=== PATIENT | female | born 1995 | race Two or more races ===

== ENCOUNTER → 2024-05-19 | Outpatient (CLI) | payer MEDICAID, SELFPAY ==
--- NOTE | 2024-05-19 15:30 | XR_ITS ---
Examination: Pelvic ultrasound, transabdominal, complete Technique: Transabdominal ultrasound of the pelvis performed using grayscale imaging Date and time of exam: May 19, 2024 1528 hours INDICATIONS: Partially cystic partially solid right adnexal mass 5.[address] pelvis June 21, 2023 FINDINGS: Uterus 9.1 x 4.2 x 5.0 cm No uterine mass or intrauterine gestation Endometrial stripe 1.2 cm Right ovary 3.5 x 2.4 x 2.5 cm arterial flow Left ovary 3.8 x 2.2 x 3.0 cm arterial flow, 2.8 x 1.5 x 2.6 cm cyst IMPRESSION: Left ovarian 2.8 x 1.5 x 2.6 cm cyst
== END | disposition home or self-care (01) ==
PROVIDERS: Referring Provider Nurse Practitioner Family; Visit Provider Nurse Practitioner Family
DX: N83.202 Unspecified ovarian cyst, left side (principal); Z87.42 Personal history of other diseases of the female genital tract
CPT/HCPCS: 76856

== ENCOUNTER 2024-06-11 18:16 | Emergency (ER) | payer MEDICAID, SELFPAY ==
[2024-06-11 18:20] VITALS: BP 123/91; PULSE 125; PULSE 134; RESP 16; RESP 22; TEMP 36.7; O2SAT 98
[2024-06-11 18:26] VITALS: BMI 35.2
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
[2024-06-11] MEDS: SODIUM CHLORIDE 0.9% 1000 ML 1,000 ML 999 ML IV (18:37)
[2024-06-11] MEDS: DIPHTH,PERTUSS(ACELL),TET VAC 0.5 ML SYR- ADULT IMi (19:17)
--- NOTE | 2024-06-11 19:28 | PC.NURSE ---
MARBLE COPER AT BEDSIDE TALKING TO PT AT THIS TIME.
[2024-06-11] MEDS: ACETAMINOPHEN 325 MG TABLET 650 MG PO (19:53)
[2024-06-11 19:57] VITALS: BP 124/67; PULSE 104; RESP 18; TEMP 36.7; O2SAT 99
== END 2024-06-11 20:02 | disposition home or self-care (01) ==
LOC: SERX 18:54
PROVIDERS: Emergency Provider Emergency Medicine; PCP Nurse Practitioner Family
DX: S01.01XA Laceration without foreign body of scalp, initial encounter (principal); W22.8XXA Striking against or struck by other objects, initial encounter; Z23 Encounter for immunization
CPT/HCPCS: 90471; 90715; 96360; 99284; J7030; A9270

== ENCOUNTER 2024-10-26 14:44 | Emergency (ER) | payer MEDICAID, SELFPAY ==
[2024-10-26 15:39] VITALS: BP 113/79; PULSE 82; RESP 17; TEMP 37; O2SAT 98; BMI 32.3
--- NOTE | 2024-10-26 15:53 | PD.EDHA ---
ED Headache RME/HPI General Chief Complaint: Headache Stated Complaint: PRESSURE/PAIN BACK OF SKULL X 0900 Time Seen by Provider: 10/26/24 14:58 Arrival date/time: 10/26/24 14:44 This is a 29-year-old female that comes in with complaints of head pain to her left occipital area and left lateral neck area. Patient states that she had a migraine yesterday and took [place] yesterday and this morning hip was hurting still. Patient describes her pain as a dull pain. No nausea vomiting. No focal deficits Related Data Allergies Allergy/AdvReac Type Severity Reaction Status Date / Time No Known Allergies Allergy Verified 10/26/24 14:49 Review of Systems Review of Systems Systems Reviewed: All systems reviewed, normal except as documented Past Medical History Past Medical History NEUROLOGIC: Negative Neurological Disorders or Seizures CARDIAC: Negative Cardiac Disorders or Congestive Heart Failure RESPIRATORY: Negative Chronic Obstructive Pulmonary Disease (COPD) or Asthma GASTROINTESTINAL: Negative Gastrointestinal Disorders GENITOURINARY: Negative Genitourinary Disorders or Renal Disease REPRODUCTIVE: Positive Genital Herpes and Previous Pregnancies MUSCULOSKELETAL: Negative Musculoskeletal Disorders ENDOCRINE: Negative Endocrine Disorders, Diabetes Mellitus Type 1 or Diabetes Mellitus Type 2 HEMATOLOGIC: Positive Anemia; Negative Blood Disorders or Sickle Cell Disease PSYCHO/SOCIAL: Positive Anxiety OTHER HISTORY: Positive Hospitalization; Negative Autoimmune Disease, Blood Transfusions, Blood Transfusion Reaction or Anesthesia Reactions Family History FAMILY HISTORY: Positive Family Cardiac Disorders and Family Gastrointestinal Problems; Negative Family Psychiatric Problems, Family Respiratory Disorders, Family Cancer, Family Surgery or Family Anesthesia Reaction Surgical History SURGICAL: Positive Section Social History SMOKING STATUS: Never smoker SECOND HAND EXPOSURE: Yes SUBSTANCE USE: does not use ALCOHOL: Never ED Exam Narrative Physical exam: VITAL SIGNS: Reviewed. GENERAL APPEARANCE: Alert and interactive, follows commands, no acute distress, HEAD AND FACE: Non-traumatic. ENT: PERRL, conjuctiva pink and clear, eyelid no trauma, Mucous membrane moist. NECK: Supple, nontender, no nuchal rigidity. CHEST: No tenderness, no crepitus, no paradoxical movement, no retractions. LUNGS: Clear, well ventilated, symmetric, no rales, no wheezing, no rhonchi, no stridor, good breath sounds bilaterally. HEART: Regular rate, regular rhythm, no murmur, no gallops. ABDOMEN: Soft, nondistended, no guarding, nontender NEUROLOGICAL: Gross motor function intact sensory function intact, Appropriate for age. MUSCULOSKELETAL: low back nontender, full range of motion. EXTREMITIES: No redness no swelling no skin breakdown on bilateral foot and leg. Distal neurovascular status intact bilateral foot SKIN: Color pink, dry, no rash, no lacerations, no abrasions, no contusions. Course Quality Measures none Orders Category Date Time Status Acetaminophen Tab [Tylenol ES Tab] Med 10/26/24 15:52 Discontinued 1,000 mg PO X1 ONE CYCLObenzaPRINE [Flexeril] Med 10/26/24 15:52 Discontinued 10 mg PO X1 ONE Ketorolac Inj [Toradol Inj] Med 10/26/24 15:52 Discontinued 60 mg IM X1 ONE Metoclopramide Inj [Reglan Inj] Med 10/26/24 15:52 Discontinued 10 mg IM X1 ONE Vital Signs Vital signs: Vital Signs Temperature 98.6 F 10/26/24 15:39 Pulse Rate 82 10/26/24 15:39 Respiratory Rate 17 10/26/24 15:39 Blood Pressure 113/79 10/26/24 15:39 Pulse Oximetry (%) 98 10/26/24 15:39 Oxygen Delivery Method Room Air 10/26/24 15:39 Headache MDM Narrative MDM Narrative:: Neuroexam unremarkable. Patient denies any nausea vomiting. Patient denies any trauma. Will treat patient with Toradol Tylenol and Flexeril. Pain is more so to the lateral neck area. Patient has likely more tension headache. Patient told to follow-up with primary provider in 1 to 2 days. Come back to the emergency room if symptoms change or worsen Patient data External records reviewed:: [facility] previous records Clinical information provided by:: patient Social determinants that could affect healthcare access:: none Patient has the following chronic illnesses:: none How is presenting disease/condition affected by chronic disease/condition?: no chronic disease Evaluation data The following diagnostics were reviewed and interpreted by me:: other (specify) (none) Lab and/or radiology exams considered but not ordered:: none Interpretation Summary: see note Medications / Prescriptions Medications or Prescriptions considered but not ordered:: none Medication administrations:: Medication Administration History Discontinued Medications Acetaminophen (Acetaminophen 500 Mg Tablet) 1,000 mg PO X1 ONE Stop: 10/26/24 15:53 Last Admin: 10/26/24 16:33 Dose: 1,000 mg Documented By: Cyclobenzaprine HCl (Cyclobenzaprine 5 Mg Tablet) 10 mg PO X1 ONE Stop: 10/26/24 15:53 Last Admin: 10/26/24 16:33 Dose: 10 mg Documented By: Ketorolac Tromethamine (Ketorolac Inj 60 Mg/2 Ml Vial) 60 mg IM X1 ONE Stop: 10/26/24 15:53 Last Admin: 10/26/24 16:35 Dose: 60 mg Documented By: Metoclopramide HCl (Metoclopramide Inj 5 Mg/Ml Vial 2 Ml) 10 mg IM X1 ONE; Protocol Stop: 10/26/24 15:53 Last Admin: 10/26/24 16:36 Dose: 10 mg Documented By: see mar Consultations Consultation(s) initiated? (list below): No Diagnosis Differential diagnosis headache: migraine, tension headache, subarachnoid hemorrhage, headache and sinusitis Most likely diagnosis given after review of the tests above:: tension headache Admission Indicated Admission indicated?: not indicated Admission Request Was there a request for admission?: No Disposition Plan Disposition Plan: Discharge Discharge Attestation Discharge Attestation: The patient and all family members were given an opportunity to ask questions and understood the discharge instructions. Discharge instructions specifically effects, indications for sooner follow up or return to the emergency department, and the expected course of current diagnosis. Patient condition: Stable Discharge Plan Plan Patient Disposition: HOME (Self Care) Patient condition on transfer: Stable Problem List Clinical Impression: Headache Patient/Caregiver Discharge Instructions Discharge Activity: activity as tolerated Education Materials: Self-Care for Headaches Additional Instructions: Follow up with primary provider in 1-2 days. Come back to ED if symptoms change or worsen Print Language: Wolof Stand Alone Forms: [employer] Info., Patient Portal Info Letter JANE/PAPO Supervising Physician JANE/PAPO Supervising Physician: sabino
[2024-10-26] MEDS: ACETAMINOPHEN 500 MG TABLET 1000 MG PO (16:33)
[2024-10-26] MEDS: KETOROLAC INJ 60 MG/2 ML VIAL IM (16:35)
[2024-10-26] MEDS: METOCLOPRAMIDE INJ 5 MG/ML VIAL 2 ML 10 MG IM (16:36)
== END 2024-10-26 16:41 | disposition home or self-care (01) ==
LOC: SERX 16:47
PROVIDERS: Emergency Provider Emergency Medicine
DX: R51.9 Headache, unspecified (principal)
CPT/HCPCS: 96372; 99283; J1885; J2765; A9270